=== PATIENT | male | born 1950 | race Hispanic/Latino ===

== ENCOUNTER 2017-08-08 08:36 | Outpatient (CLI) | payer MEDICARE, OTHER ==
[~2017-08-08 08:36] MED LIST: Iopamidol 370 76% 100 ML VIAL ONE
[2017-08-08 09:32] LABS: ALT (SGPT) 24 U/L (8-55); AST (SGOT) 19 U/L (5-34); Alkaline Phosphatase 79 U/L (40-150); Anion Gap 9 mmol/L (10-20); BUN (Urea Nitrogen) 12 mg/dL (8.4-25.7); Bilirubin, Direct 0.8 mg/dL (0.1-0.3); Bilirubin, Total 2.3 mg/dL (0.2-1.2); Calc. Creatinine Clearance 0 mL/min (70-130); Calcium 9.1 mg/dL (7.8-10.44); Carbon Dioxide 28 mmol/L (23-31); Chloride 106 mmol/L (98-107); Estimated GFR-MDRD 77; Protein, Total 7.4 g/dL (5.8-8.1)
--- NOTE | 2017-08-08 12:58 | CT ---
CT ABDOMEN AND PELVIS WITH AND WITHOUT IV CONTRAST: HISTORY: Prostate cancer. Initial staging. FINDINGS: Each renal collecting system and ureter are decompressed without stone evident. No filling defects are apparent within the urinary system on the delayed images. Lung bases are clear. Liver is diffusely hypodense. There is a small area of curvilinear fluid den sity having the appearance of biliary distention within the anterior aspect of the lateral segment l eft liver lobe. No focal masses are apparent. There is calcification in the arterial structures. The gallbladder is surgically absent. Nonobstructed colon extends into a left inguinal hernia. Pro state gland is heterogeneous without focal abnormality apparent. Bilateral pars interarticularis de fects are apparent at the lumbosacral junction with spondylolisthesis demonstrated on the lateral to pogram. IMPRESSION: 1. No significant urinary tract abnormalities are apparent. 2. Left inguina contains nonobstructed colon. 3. Atherosclerosis. 4. Hepatosteatosis. POS: [facility]
--- NOTE | 2017-08-08 15:54 | NM ---
EXAM: WHOLE BODY BONE SCAN 08/08/17 HISTORY: Newly diagnosed prostate cancer. COMPARISON: None. TECHNIQUE: Patient administered 33 millicuries of technetium 99m MDP. Whole body imaging was performed. FINDINGS: There is degenerative change involving both shoulders, both knees, and both hips. There is associate d increased radiotracer localization. Additional degenerative changes in both elbows and wrists are noted. There is no scintigraphic evidence of osseous metastases. Mild degenerative change in lumbosacral junction also noted. IMPRESSION: No scintigraphic evidence of osseous metastases. POS: [facility]
== END 2017-08-08 08:37 | disposition home or self-care (01) ==
LOC: CT 08:36
PROVIDERS: ATTEND Urology
DX: C61 Malignant neoplasm of prostate (principal); K76.0 Fatty (change of) liver, not elsewhere classified; I70.90 Unspecified atherosclerosis
CPT/HCPCS: 74178; 78306; 80048; 80076; 82565; A9503; 36415

== ENCOUNTER 2017-09-29 11:54 | Outpatient (CLI) | payer MEDICARE, OTHER ==
[2017-09-29 13:25] LABS: Hematocrit 42.2 % (42.0-52.0); Mean Platelet Volume 7.4 fL (7.4-10.4); Red Blood Cell (RBC) Count 4.49 mill/uL (4.70-6.10); White Blood Cell (WBC) Count 9.2 thou/uL (4.8-10.8)
[2017-09-29 13:32] LABS: Prothrombin Time 13.6 SEC (12.0-14.7)
[2017-09-29 13:33] LABS: PTT 62.9 SEC (22.9-36.1)
[2017-09-29 13:57] LABS: ALT (SGPT) 21 U/L (8-55); AST (SGOT) 18 U/L (5-34); Alkaline Phosphatase 73 U/L (40-150); Anion Gap 11 mmol/L (10-20); BUN (Urea Nitrogen) 12 mg/dL (8.4-25.7); Bilirubin, Total 2.3 mg/dL (0.2-1.2); Calc. Creatinine Clearance 0 mL/min (70-130); Calcium 9.2 mg/dL (7.8-10.44); Carbon Dioxide 26 mmol/L (23-31); Chloride 107 mmol/L (98-107); Estimated GFR-MDRD 73; Globulin 3.2 g/dL (2.4-3.5); Protein, Total 7.3 g/dL (5.8-8.1)
== END 2017-09-29 11:55 | disposition home or self-care (01) ==
LOC: LABBT 11:54
PROVIDERS: ATTEND Internal Medicine Cardiovascular Disease
DX: Z01.818 Encounter for other preprocedural examination (principal)
CPT/HCPCS: 80053; 85027; 85610; 85730

== ENCOUNTER 2017-09-29 13:18 | Outpatient (CLI) | payer MEDICARE, OTHER ==
[~2017-09-29 13:18] MED LIST changes: +Gadobenate Dimeglumine 529 MG/1 ML (20ML VIAL) ONE; -Iopamidol 370 76% 100 ML VIAL ONE
--- NOTE | 2017-09-29 20:24 | MRI ---
MRI OF THE PELVIS WITH AND WITHOUT IV CONTRAST: Indication: History of a prostate nodule. Comparison: Bone scan, 08-08-17; CT abdomen and pelvis, 08-08-17. Technique: Multiplanar, multisequence MR images were obtained of the pelvis utilizing prostate cancer protocol. Patient received 20 cc of MultiHance for the examination. FINDINGS: The prostate measures 5.6 x 5.6 x 4.5 cm. The total prostatic volume was 73.4 cc. There is a 2.6 cm region of restricted diffusion involving the right mid prostate gland peripheral zo ne on image 19 of series 9. There is abnormal enhancement seen within the region of restricted diffus ion on the dynamic contrast enhanced images within the right mid prostate gland. There is corresponding abnormal T2 signal intensity and enhancement involving the right neurovascular bundle consistent with neurovascular involvement. No suspicious lesion is evident within the central zone of the gland. There is a mildly prominent right internal iliac node measuring 6.7 mm. No additional enlarged lymph node is grossly evident. No free fluid is evident. There is a large left inguinal hernia containing portions of the sigmoid colon. There is scattered di verticulosis of the sigmoid colon. There is diffuse heterogeneous marrow signal involving the pelvic bones. IMPRESSION: 1. PIRADS category 5 - very high (clinically significant cancer is highly likely to be present). 2. There is a large sized lesion which demonstrates restricted diffusion and abnormal contrast enhanc ement that is suspicious for malignancy. There is abnormal enhancement and signal intensity involving the right neural vascular bungle suspicious for extracapsular involvement. 3. Mildly prominent right internal iliac lymph node measuring 6.7 mm that is suspicious for regional lymph node spread of disease. 4. Diffuse heterogeneous marrow signal intensity involving the pelvis and may be related to underlyin g red marrow hyperplasia. No abnormality was recent on a bone scan dated 08-08-17. 5. Large left inguinal hernia containing a portion of the sigmoid colon. 6. Colonic diverticulosis. POS: [facility]
== END 2017-09-29 13:19 | disposition home or self-care (01) ==
LOC: TBSIIMAG 13:18
PROVIDERS: ATTEND Urology
DX: N40.2 Nodular prostate without lower urinary tract symptoms (principal); K40.90 Unilateral inguinal hernia, without obstruction or gangrene, not specified as recurrent; K57.30 Diverticulosis of large intestine without perforation or abscess without bleeding
CPT/HCPCS: 72197; 80053; 85027; 85610; 85730; 93005; 93010; A9579

== ENCOUNTER 2017-09-30 06:01 | Day surgery (SDC) | payer MEDICARE, OTHER ==
[2017-09-29 12:19] VITALS: BMI 26.9
[~2017-09-30 06:01] MED LIST changes: -Gadobenate Dimeglumine 529 MG/1 ML (20ML VIAL) ONE; +Iopamidol 370 76% 100 ML VIAL ONE
[2017-09-30] MEDS ORDERED: Verapamil 5 MG/2 ML VIAL ONE (06:37)
[2017-09-30] MEDS ORDERED: Nitroglycerin 100MG/250ML BOT 250 ML ONE (06:37)
[2017-09-30] MEDS ORDERED: Heparin 1000 UNIT/NS 500ML(OR) 1,000 ML ONE (06:37)
[2017-09-30] MEDS ORDERED: Heparin 10,000 UNITS/1 ML VIAL ONE (06:37)
[2017-09-30] MEDS ORDERED: Fentanyl 100 MCG/2 ML VIAL ONE (07:26)
[2017-09-30] MEDS ORDERED: Midazolam HCl 2 mg/2 ml Vial ONE (07:26)
--- NOTE | 2017-09-30 12:28 | CON ---
DATE OF CONSULTATION: 09/30/2017 REASON FOR CONSULTATION: Evaluation for coronary artery bypass surgery. PERTINENT HISTORY: The patient is a 67-year-old male who underwent preoperative cardiology evaluation in preparation for robotic prostatectomy. Nuclear stress test demonstrated inferior scar and reduced left ventricular function. Cardiac catheterization today demonstrated an 80% ostial left main stenosis, severe 3-vessel coronary artery disease, and moderate reduction in left ventricular function with ejection fraction of 45%. LVEDP was 13. The patient was subsequently referred for coronary artery bypass surgery. The patient denies angina, shortness of breath, or prior NE. PAST MEDICAL HISTORY: Significant only for recent diagnosis of prostate cancer and longstanding GERD. PAST SURGICAL HISTORY: 1. Open cholecystectomy. 2. Back surgery. 3. ERCP for retained stone. ALLERGIES: None. SOCIAL HISTORY: Half a pack to 1-pack per day cigarette smoker for most of his adult life. Nondrinker. FAMILY HISTORY: Noncontributory for coronary artery disease. REVIEW OF SYSTEMS: No history of diabetes, hypertension, dyslipidemia, kidney or liver disease, TIA or CVA, or claudication. He is also asymptomatic from the prostate standpoint. MEDICATIONS PRIOR TO ADMISSION: [id number] omeprazole 20 mg daily, gabapentin 300 mg at bedtime, and baclofen 10 mg t.i.d. He has been started on Aspirin 81mg daily as of today. LABORATORY AND X-RAY FINDINGS: Hemoglobin 15.3. Platelet count 164,000. INR 1.0. Creatinine 1.02. PHYSICAL EXAMINATION: VITAL SIGNS: Height 5 feet 7 inches, weight stated as 170 pounds, blood pressure 124/57, heart rate 52. GENERAL: A well-developed, well-nourished male, in no acute distress. He is fully oriented. HEENT: Grossly unremarkable. NECK: Without JVD or adenopathy. LUNGS: Clear with good inspiratory effort. HEART: Sinus bradycardia without murmur or rub. ABDOMEN: Soft and nontender, without palpable mass. EXTREMITIES: Without edema. VASCULAR: Palpable radial, femoral, popliteal, and dorsalis pedis pulses bilaterally. No carotid bruits were appreciated. Abdominal aorta is nonpalpable. NEUROLOGIC: No focal deficits. IMPRESSION: Poor prognostic stress test, severe left main and 3-vessel coronary artery disease, and moderate reduction in left ventricular function. RECOMMENDATIONS: Coronary artery bypass surgery to which the patient is in agreement following discussion with his referring merchandising team lead and myself. The indications, benefits, alternatives, and risks were explained in detail to the patient. All questions were answered. The patient wants to talk to family members prior to scheduling a date and proceeding. I will wait to hear back from him. LEONEL
== END 2017-09-30 11:50 | disposition home or self-care (01) ==
LOC: CCL 06:01
PROVIDERS: ATTEND Internal Medicine Cardiovascular Disease
DX: I25.10 Atherosclerotic heart disease of native coronary artery without angina pectoris (principal); C61 Malignant neoplasm of prostate; K21.9 Gastro-esophageal reflux disease without esophagitis; F17.210 Nicotine dependence, cigarettes, uncomplicated
CPT/HCPCS: 80061; 93458; C1769; 99152; J1644; J2250; J3010

== ENCOUNTER 2018-10-21 10:07 | Outpatient (CLI) | payer MEDICARE, OTHER ==
--- NOTE | 2018-10-21 12:12 | CT ---
CT CHEST LOW DOSE SCREENING: HISTORY: Pulmonary lung screening. COMPARISON: CT from 06/13/2018. FINDINGS: LUNG SCREENING-SPECIFIC (LUNG-RADS SPECIFIC): Negative. No suspicious pulmonary nodules. POTENTIALLY SIGNIFICANT INCIDENTALS (LUNG-RADS CATEGORY S): Negative. PULMONARY INCIDENTALS: Mild paraseptal emphysema. Small, sub-3-mm pulmonary nodules. No pneumothor ax. No effusion. OTHER INCIDENTALS: No thoracic spine compression fracture. Multiple midline sternotomy wires. Mild bilateral gynecomastia. IMPRESSION: Lung-RADS category 2-Benign appearance or behavior. Recommend continued annual screening with low dose CT in 12 months. POS: [facility]
== END 2018-10-21 10:08 | disposition home or self-care (01) ==
LOC: CT 10:07
PROVIDERS: ATTEND Family Medicine
DX: F17.210 Nicotine dependence, cigarettes, uncomplicated (principal); R91.1 Solitary pulmonary nodule
CPT/HCPCS: G0297